=== PATIENT | male | born 1970 | race Caucasian/White ===

== ENCOUNTER 2017-07-18 11:22 | Emergency (ER) | payer MEDICAID ==
[2017-07-18 12:57] LABS: ADD MAN DIFF? NO
[2017-07-18 13:01] LABS: BASOPHILS % 0.2 % (0.0-2.0); EOSINOPHILS % 0.6 % (0.0-7.0); HEMATOCRIT 30.3 % (42.0-52.0); HEMOGLOBIN 9.8 g/dl (14.0-18.0); LYMPHOCYTES # 1.3 10^3/ul (0.8-2.9); LYMPHOCYTES % 26.6 % (15.0-51.0); MEAN CORPUSCULAR HEMOGLOBIN 27.2 pg (29.0-33.0); MEAN CORPUSCULAR HGB CONC 32.3 g/dl (32.0-37.0); MEAN CORPUSCULAR VOLUME 84.2 fl (82.0-101.0); MEAN PLATELET VOLUME 9.7 fl (7.4-10.4); MONOCYTE # 0.5 10^3/ul (0.3-0.9); NEUTROPHIL # 2.9 10^3/ul (1.6-7.5); NEUTROPHILS % 60.8 % (39.0-77.0); PLATELET COUNT 270 10^3/UL (140-415); RED CELL DISTRIBUTION WIDTH 14.1 % (11.5-14.5)
[2017-07-18 13:01] LABS: WHITE BLOOD COUNT 4.7 10^3/ul (4.8-10.8)
[2017-07-18 13:15] LABS: ALANINE AMINOTRANSFERASE 19 IU/L (13-69); ALBUMIN 3.6 g/dl (3.3-4.9); ALBUMIN/GLOBULIN RATIO 0.87; ALKALINE PHOSPHATASE 56 IU/L (42-121); ANION GAP 13 (8-16); ASPARTATE AMINO TRANSFERASE 25 IU/L (15-46); BILIRUBIN,INDIRECT 0.2 mg/dl (0-1.1); BILIRUBIN,TOTAL 0.2 mg/dl (0.2-1.3); BLOOD UREA NITROGEN 13 mg/dl (7-20); CARBON DIOXIDE 29 mmol/L (21-31); CHLORIDE 99 mmol/L (97-110); CREATININE 0.78 mg/dl (0.61-1.24); GLUCOSE 84 mg/dl (70-220); LIPASE 131 U/L (23-300); POTASSIUM 3.9 mmol/L (3.5-5.1); SODIUM 137 mmol/L (135-144); TOTAL PROTEIN 7.7 g/dl (6.1-8.1)
[2017-07-18] MEDS: ONDANSETRON 4 MG INJ IV (13:52)
[2017-07-18] MEDS: morphine 4 MG/ML VIAL IV (13:52)
[2017-07-18 14:02] LABS: ADD UMIC YES; UR ASCORBIC ACID 40 mg/dL (NEGATIVE); UR BILIRUBIN (Dip) NEGATIVE (NEGATIVE); UR BLOOD (Dip) NEGATIVE (NEGATIVE); UR CLARITY CLEAR (CLEAR); UR COLOR YELLOW (YELLOW); UR GLUCOSE (Dip) NEGATIVE (NEGATIVE); UR KETONES (Dip) NEGATIVE (NEGATIVE); UR LEUKOCYTE ESTERASE (Dip) NEGATIVE Leu/ul (NEGATIVE); UR MUCUS FEW /HPF (NONE SEEN); UR NITRITE (Dip) NEGATIVE (NEGATIVE); UR RBC 3 /HPF (0-5); UR SPECIFIC GRAVITY (Dip) 1.024 (1.003-1.030); UR TOTAL PROTEIN (Dip) 1+ mg/dl (NEGATIVE); UR UROBILINOGEN (Dip) NEGATIVE (NEGATIVE); UR WBC 1 /HPF (0-5)
== END 2017-07-18 15:55 | disposition home or self-care (01) ==
LOC: FTE 11:22
DX: K52.9 Noninfective gastroenteritis and colitis, unspecified (principal); D64.9 Anemia, unspecified; B37.0 Candidal stomatitis; F17.210 Nicotine dependence, cigarettes, uncomplicated; E03.9 Hypothyroidism, unspecified
CPT/HCPCS: 74176; 76705; 80053; 81001; 83690; 85025; 96374; 96375; 99285-25

== ENCOUNTER 2018-11-20 16:17 | Observation (INO) | payer OTHER, MEDICAID ==
[2018-11-20 16:45] LABS: ADD MAN DIFF? NO
[2018-11-20 16:47] LABS: BASOPHILS % 0.4 % (0.0-2.0); EOSINOPHILS # 0.1 10^3/ul (0.0-0.5); EOSINOPHILS % 1.1 % (0.0-7.0); HEMATOCRIT 38.7 % (42.0-52.0); HEMOGLOBIN 13.7 g/dl (14.0-18.0); LYMPHOCYTES # 1.8 10^3/ul (0.8-2.9); LYMPHOCYTES % 33.6 % (15.0-51.0); MEAN CORPUSCULAR HEMOGLOBIN 33.6 pg (29.0-33.0); MEAN CORPUSCULAR HGB CONC 35.4 g/dl (32.0-37.0); MEAN CORPUSCULAR VOLUME 94.9 fl (82.0-101.0); MEAN PLATELET VOLUME 9.9 fl (7.4-10.4); MONOCYTE # 0.5 10^3/ul (0.3-0.9); MONOCYTES % 8.4 % (0.0-11.0); NEUTROPHIL # 3.1 10^3/ul (1.6-7.5); NEUTROPHILS % 56.3 % (39.0-77.0); PLATELET COUNT 212 10^3/UL (140-415); RED BLOOD COUNT 4.08 10^6/ul (4.70-6.10); RED CELL DISTRIBUTION WIDTH 12.2 % (11.5-14.5)
[2018-11-20 16:47] LABS: WHITE BLOOD COUNT 5.5 10^3/ul (4.8-10.8)
[2018-11-20] MEDS: ASPIRIN 325 MG TAB PO (16:52)
[2018-11-20 16:59] LABS: HEMOGLOBIN A1C 4.5 % (0-5.9)
[2018-11-20 17:05] LABS: ANION GAP 9 (5-13); BLOOD UREA NITROGEN 19 mg/dl (7-20); CALCIUM 9.8 mg/dl (8.4-10.2); CARBON DIOXIDE 28 mmol/L (21-31); CHLORIDE 104 mmol/L (97-110); CHOL/HDL RATIO 6.4 RATIO; CHOLESTEROL 162 mg/dl (100-200); CREATINE KINASE 225 IU/L (23-200); CREATININE 1.06 mg/dl (0.61-1.24); Estimated GFR > 60 mL/min (>60); GLUCOSE 140 mg/dl (70-220); HDL CHOLESTEROL 25 mg/dl (28-71); INR 1.06; LDL CHOLESTEROL,CALCULATED 43 mg/dl; PROTIME 13.9 Sec (11.9-14.9); PT RATIO 1.1; SODIUM 141 mmol/L (135-144); TRIGLYCERIDES 471 mg/dl (0-149)
[2018-11-20 17:06] LABS: PARTIAL THROMBOPLASTIN TIME 29.6 Sec (23.0-35.0)
[2018-11-20 17:17] LABS: CK INDEX 2.2; CK-MB 5.02 ng/ml (0.0-2.4); TROPONIN-I < 0.012 ng/ml (0.000-0.120)
[2018-11-20 17:27] LABS: ETHANOL < 10.0 mg/dl (0-0)
[2018-11-20] MEDS ORDERED: morphine 2 MG INJ IV (19:30)
[2018-11-20] MEDS ORDERED: HYDROCODONE/APAP (5/325) TAB PO (19:30)
[2018-11-20] MEDS ORDERED: DOCUSATE SODIUM 100 MG CAP PO (19:30)
[2018-11-20] MEDS ORDERED: hydrALAzine 20 MG INJ IV (19:30)
[2018-11-20] MEDS ORDERED: LORAZEPAM 2 MG INJ IV (19:30)
[2018-11-20] MEDS ORDERED: NITROGLYCERIN (SL) 0.4 MG TAB SL (19:30)
[2018-11-20] MEDS ORDERED: ACETAMINOPHEN 325 MG TAB PO ×2 (19:30)
[2018-11-20] MEDS ORDERED: ONDANSETRON 4 MG INJ IV ×2 (19:30)
[2018-11-20] MEDS ORDERED: MAGNESIUM HYDROXIDE 30ML CUP PO (19:30)
[2018-11-20] MEDS ORDERED: NACL 0.9% 3 ML SYG IV (19:30)
[2018-11-20] MEDS ORDERED: ALBUTEROL/IPRATROPIUM (NEB) 3 ML AMP HHN (19:30)
[2018-11-20 20:26] LABS: FREE T4 (FREE THYROXINE) 0.73 ng/dl (0.64-1.79)
[2018-11-20] MEDS: SOD CHLORIDE 0.45% 1,000 ML IV (22:51)
[2018-11-21] MEDS: LEVOTHYROXINE 125 MCG TAB PO (06:22)
[2018-11-21 06:51] LABS: ADD MAN DIFF? NO
[2018-11-21 06:53] LABS: BASOPHILS % 0.4 % (0.0-2.0); EOSINOPHILS # 0.1 10^3/ul (0.0-0.5); EOSINOPHILS % 1.7 % (0.0-7.0); HEMOGLOBIN 13.4 g/dl (14.0-18.0); LYMPHOCYTES # 1.5 10^3/ul (0.8-2.9); MEAN CORPUSCULAR HEMOGLOBIN 33.4 pg (29.0-33.0); MEAN CORPUSCULAR HGB CONC 34.4 g/dl (32.0-37.0); MEAN CORPUSCULAR VOLUME 97.3 fl (82.0-101.0); MEAN PLATELET VOLUME 10.4 fl (7.4-10.4); MONOCYTE # 0.6 10^3/ul (0.3-0.9); MONOCYTES % 11.3 % (0.0-11.0); NEUTROPHILS % 57.4 % (39.0-77.0); PLATELET COUNT 195 10^3/UL (140-415); RED BLOOD COUNT 4.01 10^6/ul (4.70-6.10); RED CELL DISTRIBUTION WIDTH 12.4 % (11.5-14.5)
[2018-11-21 06:53] LABS: WHITE BLOOD COUNT 5.2 10^3/ul (4.8-10.8)
[2018-11-21 07:12] LABS: HEMOGLOBIN A1C 4.5 % (0-5.9)
[2018-11-21 07:20] LABS: CHOL/HDL RATIO 6.4 RATIO; HDL CHOLESTEROL 22 mg/dl (28-71); LDL CHOLESTEROL,CALCULATED 46 mg/dl; TRIGLYCERIDES 366 mg/dl (0-149)
[2018-11-21 07:20] LABS: CHOLESTEROL 141 mg/dl (100-200)
[2018-11-21 07:30] LABS: ANION GAP 6 (5-13); BLOOD UREA NITROGEN 21 mg/dl (7-20); CALCIUM 9.2 mg/dl (8.4-10.2); CARBON DIOXIDE 30 mmol/L (21-31); CHLORIDE 103 mmol/L (97-110); CREATININE 0.97 mg/dl (0.61-1.24); Estimated GFR > 60 mL/min (>60); GLUCOSE 95 mg/dl (70-220); MAGNESIUM 2.1 mg/dl (1.7-2.5); PHOSPHORUS 3.6 mg/dl (2.5-4.9); POTASSIUM 4.1 mmol/L (3.5-5.1); SODIUM 139 mmol/L (135-144)
[2018-11-21] MEDS: ASPIRIN (EC) 325 MG TAB PO (08:32)
[2018-11-21] MEDS: SOD CHLORIDE 0.45% 1,000 ML IV (08:32)
[2018-11-21] MEDS ORDERED: EMTRICITABINE/TENOFOVIR TAB PO (12:30)
[2018-11-21 13:21] LABS: ADD UMIC NO; UR ASCORBIC ACID NEGATIVE (NEGATIVE); UR BILIRUBIN (Dip) NEGATIVE (NEGATIVE); UR BLOOD (Dip) NEGATIVE (NEGATIVE); UR CLARITY CLEAR (CLEAR); UR COLOR STRAW (YELLOW); UR GLUCOSE (Dip) NEGATIVE (NEGATIVE); UR KETONES (Dip) NEGATIVE (NEGATIVE); UR LEUKOCYTE ESTERASE (Dip) NEGATIVE Leu/ul (NEGATIVE); UR NITRITE (Dip) NEGATIVE (NEGATIVE); UR SPECIFIC GRAVITY (Dip) 1.008 (1.003-1.030); UR TOTAL PROTEIN (Dip) NEGATIVE (NEGATIVE); UR UROBILINOGEN (Dip) NEGATIVE (NEGATIVE)
[2018-11-21 13:37] LABS: AMPHETAMINE/METHAMPHETAMINE Negative (NEGATIVE); BARBITURATES Negative (NEGATIVE); BENZODIAZEPINES Negative (NEGATIVE); CANNABINOIDS Positive (NEGATIVE); COCAINE Negative (NEGATIVE); OPIATES Negative (NEGATIVE)
[2018-11-21] MEDS: FENOFIBRATE 145 MG TAB PO (13:58)
[2018-11-22 06:15] LABS: ADD MAN DIFF? NO
[2018-11-22 06:22] LABS: BASOPHILS % 0.5 % (0.0-2.0); EOSINOPHILS # 0.1 10^3/ul (0.0-0.5); EOSINOPHILS % 2.5 % (0.0-7.0); HEMATOCRIT 39.8 % (42.0-52.0); HEMOGLOBIN 13.9 g/dl (14.0-18.0); LYMPHOCYTES # 1.7 10^3/ul (0.8-2.9); LYMPHOCYTES % 38.7 % (15.0-51.0); MEAN CORPUSCULAR HEMOGLOBIN 33.7 pg (29.0-33.0); MEAN CORPUSCULAR HGB CONC 34.9 g/dl (32.0-37.0); MEAN CORPUSCULAR VOLUME 96.6 fl (82.0-101.0); MEAN PLATELET VOLUME 9.9 fl (7.4-10.4); MONOCYTE # 0.6 10^3/ul (0.3-0.9); MONOCYTES % 13.6 % (0.0-11.0); NEUTROPHILS % 44.2 % (39.0-77.0); PLATELET COUNT 188 10^3/UL (140-415); RED BLOOD COUNT 4.12 10^6/ul (4.70-6.10); RED CELL DISTRIBUTION WIDTH 12.2 % (11.5-14.5)
[2018-11-22 06:22] LABS: WHITE BLOOD COUNT 4.4 10^3/ul (4.8-10.8)
[2018-11-22 06:45] LABS: ANION GAP 7 (5-13); BLOOD UREA NITROGEN 21 mg/dl (7-20); CALCIUM 9.5 mg/dl (8.4-10.2); CARBON DIOXIDE 29 mmol/L (21-31); CHLORIDE 103 mmol/L (97-110); CREATININE 1.03 mg/dl (0.61-1.24); Estimated GFR > 60 mL/min (>60); GLUCOSE 105 mg/dl (70-220); POTASSIUM 4.4 mmol/L (3.5-5.1); SODIUM 139 mmol/L (135-144)
[2018-11-22] MEDS: LEVOTHYROXINE 125 MCG TAB PO (06:54)
[2018-11-22] MEDS: DESCOVY PO (08:43)
[2018-11-22] MEDS: ASPIRIN (EC) 325 MG TAB PO (08:43)
[2018-11-22] MEDS: TIVICAY 50 MG TABLET PO (08:43)
[2018-11-22] MEDS: FENOFIBRATE 145 MG TAB PO (08:43)
[2018-11-22] MEDS ORDERED: LEVOTHYROXINE 100 MCG TAB PO (09:00)
[2018-11-22 09:55] LABS: ERYTHROCYTE SEDIMENTATION RATE 3 mm/Hr (0-15)
[2018-11-22 15:23] LABS: LYMPHOCYTE - % CD4 (HELPER) 14 % (30-61); LYMPHOCYTE - %CD8 (SUPPRESSOR) 59 % (12-42); LYMPHOCYTE - ABSOLUTE 1453 cells/uL (850-3900); LYMPHOCYTE - ABSOLUTE CD4 209 cells/uL (490-1740); LYMPHOCYTE - ABSOLUTE CD8 858 cells/uL (180-1170); LYMPHOCYTE - CD4/CD8 RATIO 0.24 (0.86-5.00)
[2018-11-22 16:15] LABS: RAPID PLASMA REAGIN REACTIVE (NR)
[2018-11-23 10:26] LABS: LYMPHOCYTE - % CD4 (HELPER) 14 % (30-61); LYMPHOCYTE - %CD8 (SUPPRESSOR) 57 % (12-42); LYMPHOCYTE - ABSOLUTE 2117 cells/uL (850-3900); LYMPHOCYTE - ABSOLUTE CD4 297 cells/uL (490-1740); LYMPHOCYTE - ABSOLUTE CD8 1197 cells/uL (180-1170); LYMPHOCYTE - CD4/CD8 RATIO 0.25 (0.86-5.00)
[2018-11-28 16:58] LABS: FLUORESCENT TREPONEMAL AB REACTIVE (NON-REACTIVE)
== END 2018-11-22 19:00 | disposition home or self-care (01) ==
LOC: E/R 16:17 → TEL 19:23
DX: R41.0 Disorientation, unspecified (principal); R47.81 Slurred speech; E78.1 Pure hyperglyceridemia; E03.9 Hypothyroidism, unspecified; Z87.891 Personal history of nicotine dependence; Z86.73 Personal history of transient ischemic attack (TIA), and cerebral infarction without residual deficits
CPT/HCPCS: 36415; 70450; 70551; 71045; 80048; 80061; 80307; 81003; 82550; 82553; 83036; 83735; 84100; 84439; 84443; 84484; 85025; 85610; 85651; 85730; 86360; 86592; 87536; 92523; 92610; 93005; 93306; 93880; 97161; 97166; 99285-25; G0378